=== PATIENT | female | born 1980 | race Hispanic/Latino ===

== ENCOUNTER 2018-12-25 14:52 | Emergency (ER) | payer OTHER ==
[~2018-12-25] VITALS: Ht 154.9 cm; Wt 86.2 kg
--- OUTSIDE RECORDS SUMMARY | 2018-12-25 14:54 | XMS REPORT ---
Author Author [facility] Address Unknown Phone Unavailable Care Team Providers Care Lining Feller Blindstitch Name Role Phone ANJEL TOMLINSON Unavailable Unavailable Problems This patient has no known problems. Allergies, Adverse Reactions, Alerts This patient has no known allergies or adverse reactions. Medications This patient has no known medications. Results Test Description Test Time Test Comments Text Results Atomic Results Result Comments CHEST 2 VIEWS [place] [address] Patient Name: MARLYN HERNANDEZ MR #: [id number] : 1980 Age/Sex: 36/F Req #: [id number] Adm Physician: Ordered by: ANJEL TOMLINSON MD Report #: [id number] Location: [facility] Room/Bed: Procedure: [id number] DX/CHEST 2 VIEWS Exam Date: 01/27/17 Exam Time: 1335 REPORT STATUS: Signed PROCEDURE: Frontal and lateral views of the chest. COMPARISON: None. INDICATIONS: COUGH, SORE THROAT, CONGESTION FINDINGS: Lines/tubes: None. Lungs: The lungs are well inflated and clear. There is no evidence of pneumonia or pulmonary edema. Pleura: There is no pleural effusion or pneumothorax. Heart and mediastinum: The heart and the mediastinum are normal. Bones: No acute bony abnormality. Upper abdomen: No free air under the diaphragm. Surgical clips overlying abdomen on lateral view likely related to prior cholecystectomy. IMPRESSION: No acute cardiopulmonary disease. Dictated by: Viet Bond M.D. on 01/27/2017 at 13:58 Electronically approved by: Viet Bond M.D. on 01/27/2017 at 13:58 Dictated By: VIET BOND MD [id number] Transcribed By: CINTIA on 01/27/17 1358 COPY TO: ANJEL TOMLINSON MD
[2018-12-25] MEDS ORDERED: DEXAMETHASONE SOD PHOS 10 MG/1 ML VIAL IV ONE (15:15)
[2018-12-25] MEDS ORDERED: ALBUTEROL/IPRATROPIUM 3 ML NEB NEB ONE (15:15)
[2018-12-25] MEDS ORDERED: ALBUTEROL/IPRATROPIUM 3 ML NEB ONE (15:21)
[2018-12-25] MEDS ORDERED: ALBUTEROL SULF 0.083% NEB SOLN 3 ML NEB ONE (15:27)
[2018-12-25] MEDS ORDERED: IPRATROPIUM BROMIDE 0.02% 2.5 ML NEB ONE (15:27)
--- NOTE | 2018-12-25 15:30 | NUR ---
RT AT BEDSIDE ADMINISTERING TREATMENT
--- NOTE | 2018-12-25 15:39 | Diagnostic Imaging Report ---
Frontal and lateral views of the chest. HISTORY: Breathing difficulty, cough COMPARISON: Images from chest radiographs January 27, 2017. DISCUSSION: Lungs: Mild platelike right mid lung atelectasis. Diffuse mildly increased peribronchial interstitial markings. No evidence of a consolidative pneumonia or pulmonary alveolar edema. Pleura: No pleural effusion or pneumothorax. Heart and mediastinum: The cardiomediastinal silhouette appear(s) unremarkable. Bones and soft tissues: Appear unremarkable. Other: Metallic clips in the right upper quadrant of the abdomen are compatible with prior cholecystectomy. IMPRESSION: 1. Findings compatible with a nonspecific bronchitis. 2. No consolidative pneumonia. Signed by: Dr. Josh España D.O., M.M.M. on 12/25/2018 3:35 PM
== END 2018-12-25 16:20 | disposition home or self-care (01) ==
LOC: ER 14:52
DX: R05 Cough (principal); J20.9 Acute bronchitis, unspecified
CPT/HCPCS: 71046; 94640; 99283; J1100